=== PATIENT | female | born 1975 | race Caucasian/White ===

== ENCOUNTER 2019-12-30 07:00 | Day surgery (SDC) | payer OTHER ==
[~2019-12-30] VITALS: Ht 160 cm; Wt 95.3 kg
[~2019-12-30 07:00] MED LIST: ARMOUR THYROID60 MG PO; LEVOTHYROXINE112 MCG PO; MOBIC15 MG PO; TENORMIN50 MG PO; WELLBUTRIN SR150 MG PO
[2019-12-30] MEDS ORDERED: CELECOXIB200 MG PO (08:29)
[2019-12-30] MEDS ORDERED: HYDROCODON-ACE1 EA11 PO (08:29)
--- NOTE | 2019-12-30 08:38 | NUR ---
12/30/19 0838 Bri Kowalski 0828-PT ARRIVES TO PACU ON 6 L VIA MASK WITH OPA IN PLACE. PT UNRESPONSIVE TO VERBAL STIMULUS. VSS. SATS >90%. FOGGING IN MASK PRESENT.
--- NOTE | 2019-12-30 11:07 | NUR ---
PT AMBULATES TO BR WITH ONE PERSON STAND BY ASSIST. STEADY ON FEET. DENIES NAUSEA. REPORTS CONTINUED 3-4/10 SURGICAL SITE PAIN. VOIDS UNMEASURED URINE. REVIEWED DISCHARGE INSTRUCTIONS WITH PATIENT AT BEDSIDE. PT SENT WITH COPY OF INSTRUCTIONS WELL MD OFFICE DISCHARGE INSTRUCTIONS.
--- NOTE | 2020-01-02 09:01 | OR ---
[facility] [address], [place] [address] Signed DATE OF OPERATION: 12/30/2019 SURGEON: Joie Muller MD PREOPERATIVE DIAGNOSIS: Medial meniscus tear, left knee. POSTOPERATIVE DIAGNOSES: 1. Medial meniscus tear, left knee. 2. Significant chondrocalcinosis. PROCEDURE PERFORMED: Left knee arthroscopy with debridement of lateral meniscus. SUPERVISOR WORD PROCESSING: None. ANESTHESIA: General. BLOOD LOSS: Minimal. BRIEF HISTORY: Jair is a 44-year-old female with significant pain in her knee. She had a large meniscus tear on the MRI and mechanical symptoms. We discussed surgery versus nonsurgical approaches and she wished to proceed. DESCRIPTION OF PROCEDURE: Once consent was obtained, she was taken to the operating room. After adequate anesthesia, she was placed on operating room table. The right leg was flexed, abducted, and externally rotated on a well-padded leg esposito. The left was placed in well-padded leg esposito and the portal sites were pre-injected using 0.25% Marcaine with epinephrine under an alcohol prep. The leg was then prepped and draped in standard sterile fashion and a standard inferior lateral and superolateral portals were made and the scope was introduced. ARTHROSCOPIC FINDINGS: Substantial synovitis was noted throughout the knee particularly in the medial half. The patellofemoral joint was intact. Medial and lateral gutter showed mild osteophytes Electronically Signed By: JOIE MULLER MD 01/02/20 0901 PATIENT NAME: JAIR LÓPEZ OPERATIVE REPORT DATE OF : 71 REPORT #: [id number] PHYSICIAN: JOIE MULLER MD PCP: ANA SANTIZO NP REPORT IS CONFIDENTIAL AND NOT TO BE RELEASED WITHOUT AUTHORIZATION [facility] [address] [facility] [place] [place] [address] Signed and extensive synovitis. There was calcific deposits in the synovium, particularly on the medial side. ACL and PCL were intact. Lateral compartment was intact with mild chondrocalcinosis. Medial compartment was intact with significant chondrocalcinosis meniscus and some in the articular side. There was a large complex tear extending from the midbody posteriorly. There were several unstable flaps. DESCRIPTION OF PROCEDURE: Standard inferomedial portal was made after localization using a spinal needle. The straight and curved biters were then used to trim the meniscus tear back to stable rim posteriorly. This was smoothed using shaver and all debris was evacuated. The flaps on the femoral condyle was debrided as well. The scope was then withdrawn. Portals closed with 3-0 nylon and dressed with Adaptic, ABD and German wrap. We injected the knee with 60 mg Toradol at the end of the case. She tolerated the procedure well. All sponge, needle, and instrument counts were correct. Joie Muller MD BA/MODL /[id number] Copies: ~ Electronically Signed By: JOIE MULLER MD 01/02/20 0901 PATIENT NAME: JAIR LÓPEZ OPERATIVE REPORT DATE OF : 71 REPORT #: [id number] PHYSICIAN: JOIE MULLER MD PCP: ANA SANTIZO NP REPORT IS CONFIDENTIAL AND NOT TO BE RELEASED WITHOUT AUTHORIZATION
== END 2019-12-30 12:02 | disposition home or self-care (01) ==
LOC: DS 07:00
PROVIDERS: Specialist
PROC: 0SBD4ZZ Excision of Left Knee Joint, Percutaneous Endoscopic Approach (ICD-10-PCS; principal; 2019-12-30 08:15)
DX: S83.232A Complex tear of medial meniscus, current injury, left knee, initial encounter (principal); M11.262 Other chondrocalcinosis, left knee; M25.762 Osteophyte, left knee; M65.862 Other synovitis and tenosynovitis, left lower leg; E03.9 Hypothyroidism, unspecified; I10 Essential (primary) hypertension; Z79.899 Other long term (current) drug therapy; Z98.890 Other specified postprocedural states
CPT/HCPCS: 01400; A9270; J0690; J1100; J1885; J2001; J2250; J2300; J2405; J2704; J3010; J3475; J7121

== ENCOUNTER 2023-12-22 14:54 | Observation (INO) | payer OTHER ==
[~2023-12-22] VITALS: Ht 160 cm; Wt 82.1 kg
[~2023-12-22 14:54] MED LIST changes: +ACETAMINOPHEN500 MG PO; +CELECOXIB200 MG PO; +COLLAGEN 15001 EACH PO; +FOLINIC-PLUS C1 EACH PO; +GABAPENTIN300 MG PO; +GLUCOSAMINE DA1 EACH PO; +HYDROCODON-ACE1 EA11 PO; +MAGNESIUM COMP300 MG PO; +MELOXICAM15 MG PO; +METHYLPHENIDATE10 M1 PO; +MULTI VITAMIN1 EACH PO; +NEXIUM20 MG PO; +OMEPRAZOLE20 MG PO; +OSTERA TABLET1 EACH PO; +OXYCODONE HCL5 MG PO; +PROBIOTIC250 MG PO; +SENNA LAX8.6 MG PO; +TIZANIDINE HCL4 MG PO; +XARELTO10 MG PO; +ZYLOPRIM100 MG PO; +[UNRECOGNIZED DRUG - OTHER] PO
--- OUTSIDE RECORDS SUMMARY | 2023-12-22 14:57 | XMS ---
PreManage Notification: JAIR LÓPEZ Security [address] Engineer Events No recent Security Events currently on file CRITERIA MET - PDMP CARE PROVIDERS -[facility]- Dentist: Automatic Pattern Edger [facility] PHONE: [phone] Butch has no Care Guidelines for this patient. E.DLiliana VISIT COUNT (12 MO.) 1 AMINATA Olivares TOTAL 1 NOTE: Visits indicate total known visits. ED/UCC VISIT TRACKING (12 MO.) 12/22/2023 14:55 AMINATA Bautista OR TYPE: Emergency COMPLAINT: - FT KNEE PAIN INPATIENT VISIT TRACKING (12 MO.) No inpatient visits to display in this time frame [email or web address]
[2023-12-22] MEDS ORDERED: VALACYCLOVIR1000 MG PO (15:11)
[2023-12-22] MEDS ORDERED: CEPHALEXIN MONOHYDRATE 500 MG CAP PO ONE (16:30)
[2023-12-22 16:50] LABS: BASOPHILS 1.4 % (0-2); EOSINOPHILS 1.7 % (0-6); HEMATOCRIT 39.5 % (35.0-50.0); HEMOGLOBIN 13.1 g/dL (12.0-18.0); LYMPHOCYTES 27.8 % (24-44); MCH 33.3 (27-36); MCHC 33.2 g/dl (30-36); MCV 100.4 fl (81-99); MONOCYTES 11.1 % (0-12); PLATELET COUNT 224 K/uL (140-440); RBC 3.94 M/ul (4.3-5.7); RDW 15.9 (10.5-15.0)
[2023-12-22 17:05] LABS: ALBUMIN 3.9 g/dL (3.4-5.0); ALBUMIN/GLOBULIN RATIO 1.11 (1.1-2.4); ANION GAP 12.8 (7-21); BILIRUBIN, TOTAL 0.6 ng/dL (0.2-1.0); BUN/CREATININE RATIO 20.54 (6.0-28.6); CALCIUM 9.3 mg/dL (8.5-10.1); CREATININE, SERUM 0.73 mg/dL (0.55-1.02); POTASSIUM 3.8 mmol/L (3.5-5.1); PROTEIN, TOTAL 7.4 g/dL (6.4-8.2)
[2023-12-22 17:52] LABS: ERYTHROCYTE SEDIMENTATION RATE 20
[2023-12-22] MEDS ORDERED: CEFEPIME HCL/D5W 2 GM/100 ML PIGGYBACK IV ONE (18:15)
[2023-12-22] MEDS ORDERED: HYDROCODONE/ACETA 7.5/325 TAB PO PRN (18:30)
[2023-12-22] MEDS ORDERED: ondansetron HCL 4 MG/2 ML VIAL IV PRN (18:30)
[2023-12-22] MEDS ORDERED: HYDROCODONE/ACETA 7.5/325 TAB PO ONE (18:45)
[2023-12-22 19:37] VITALS: BP 156/91
--- NOTE | 2023-12-22 19:40 | NUR ---
PATIENT TO THE FLOOR AND RESTING IN HOSPITAL BED. VS AND I&Os OBTAINED AND RECORDED. IV FLUSHED AND WNL. PATIENT AT HOME MEDS DISCUSSED. PATIENT EDUCATED TO CALL LIGHT AND ROOM. PATIENT DENIES NEEDS AT THIS TIME. CALL LIGHT IN REACH. ASSESSMENT COMPLETE. REDNESS, PAIN AND HEAT NOTED ON LLE. REDNESS OUTLINED PRIOR TO ARRIVAL.
[2023-12-22] MEDS ORDERED: OXYCODONE HCL 5 MG TAB PO PRN (20:30)
--- NOTE | 2023-12-22 20:44 | NUR ---
PHONE CALL TO MD, UPDATED ON VS. TELEPHONE ORDER FOR MEDICATIONS REPEATED BACK TO VERIFY ALL ORDERS. EMAR UPDATED. TELEPHONE ORDER TO ELEVATE LLE ON TWO PILLOWS, PRIMARY RN NOTIFIED.
[2023-12-22] MEDS ORDERED: ACETAMINOPHEN 500 MG TAB PO PRN (20:45)
[2023-12-22] MEDS ORDERED: MELOXICAM 15 MG TAB PO SCH (21:00)
[2023-12-22] MEDS ORDERED: TRAZODONE HCL 50 MG TAB PO SCH (21:00)
[2023-12-22] MEDS ORDERED: diphenhydrAMINE HCL 25 MG CAP PO SCH (21:00)
[2023-12-22] MEDS ORDERED: allopurinoL 100 MG TAB PO SCH (21:00)
[2023-12-22] MEDS ORDERED: PANTOPRAZOLE SODIUM 40 MG TABEC PO SCH (21:00)
[2023-12-22] MEDS ORDERED: atenoloL 50 MG TAB PO SCH (21:00)
[2023-12-22] MEDS ORDERED: GABAPENTIN 300 MG CAP PO SCH (21:00)
[2023-12-22] MEDS ORDERED: TIZANIDINE HCL 4 MG TABLET PO SCH (21:00)
--- NOTE | 2023-12-22 21:00 | NUR ---
IN ROOM FOR MEDICATION ADMINISTRATION. PRN MEDICATION ADMINISTERED FOR 5/10 PAIN IN LLE. pt DRINKING WATER. LEG ELEVATED ON TWO PILLOWS AT THIS TIME. EDUCATION PROVIDED. CALL LIGHT AND PERSONAL SUPPLIES IN REACH.
--- NOTE | 2023-12-22 21:40 | NUR ---
PATIENT RESTING IN BED. SCHEDULED MEDICATION ADMINISTERED. PATIENT CPAP BROUGHT IN BY SON. PATIENT LLE ELEVATED WITH 2 PILLOWS. PATIENT DENIES NEEDS AT THIS TIME. NO FURTHER NEEDS. CALL LIGHT IN REACH.
[2023-12-22] MEDS ORDERED: CEFEPIME HCL/D5W 1 GM/100 ML PIGGYBACK IV SCH (22:00)
--- NOTE | 2023-12-22 22:50 | NUR ---
PATIENT RESTING IN BED ON BACK WITH EYES CLOSED. RESPIRATIONS EVEN AND UNLABORED. CALL LIGHT IN REACH.
--- NOTE | 2023-12-23 00:35 | NUR ---
PATIENT RESTING IN BED ON BACK WITH EYES CLOSED. RESPIRATIONS EVEN AND UNLABORED. CALL LIGHT IN REACH.
[2023-12-23] MEDS ORDERED: CEFEPIME HCL/D5W 1 GM/100 ML PIGGYBACK IV SCH (02:00)
[2023-12-23 02:31] VITALS: BP 94/59
--- NOTE | 2023-12-23 02:45 | NUR ---
PATIENT RESTING IN BED ON BACK WITH EYES CLOSED. AWAKENS EASILY. SCHEDULED ABX INFUSING PER ORDER. PATIENT REPORTS PAIN IN LLE. PRN PAIN MEDICATION ADMINSTERED. VS AND I&Os OBTAINED AND RECORDED. FRESH WATER PROVIDED. PATIENT HAS NO FURTHER NEEDS. CALL LIGHT IN REACH.
--- NOTE | 2023-12-23 04:37 | NUR ---
PATIENT RESTING IN BED WITH EYES CLOSED. RESPIRATIONS EVEN AND UNLABORED. CALL LIGHT IN REACH.
[2023-12-23 05:23] LABS: BASOPHILS 0.8 % (0-2); EOSINOPHILS 3.9 % (0-6); HEMATOCRIT 34.5 % (35.0-50.0); HEMOGLOBIN 11.8 g/dL (12.0-18.0); LYMPHOCYTES 28.9 % (24-44); MCH 33.9 (27-36); MCHC 34.1 g/dl (30-36); MCV 99.6 fl (81-99); MONOCYTES 13.1 % (0-12); NEUTROPHILS 53.3 % (39-80); PLATELET COUNT 197 K/uL (140-440); RBC 3.47 M/ul (4.3-5.7); RDW 15.6 (10.5-15.0)
[2023-12-23 05:46] LABS: ALBUMIN 3.3 g/dL (3.4-5.0); ALBUMIN/GLOBULIN RATIO 1.06 (1.1-2.4); ANION GAP 11.9 (7-21); BILIRUBIN, TOTAL 0.4 ng/dL (0.2-1.0); BUN/CREATININE RATIO 22.98 (6.0-28.6); CALCIUM 8.6 mg/dL (8.5-10.1); CREATININE, SERUM 0.87 mg/dL (0.55-1.02); POTASSIUM 3.9 mmol/L (3.5-5.1); PROTEIN, TOTAL 6.4 g/dL (6.4-8.2)
[2023-12-23 06:14] VITALS: BP 110/71
--- NOTE | 2023-12-23 06:25 | NUR ---
PATIENT RESTING IN BED. SCHEDULED MEDICATION ADMINISTERED. PATIENT REPORTS 4/10 LLE PAIN. PRN PAIN MEDICATION ADMINISTERED, SEE MAR. VS AND I&Os OBTAINED AND RECORDED. ASSESSMENT COMPLETE. REDNESS IN LLE IS DECREASED. PATIENT STATES "IT LOOKS LIKE THE RED LIGHT ON MY LEG IS DIMMED. LIKE IT GOT TURNED DOWN" WHEN TALKING ABOUT THE LLE REDNESS. PATIENT ALSO STATES "IT IS FEELING BETTER". FRESH WATER PROVIDED. NO FURTHER NEEDS. CALL LIGHT IN REACH.
[2023-12-23] MEDS ORDERED: LEVOTHYROXINE SODIUM 50 MCG TAB PO SCH (07:00)
[2023-12-23] MEDS ORDERED: THYROID 60 MG TAB PO SCH (07:00)
--- NOTE | 2023-12-23 07:18 | NUR ---
REPORT RECEIVED FROM JAQUAN XIAO, ALL QUESTIONS ANSWERED. PT RESTING IN BED WITH EYES CLOSED, RESPIRATIONS EVEN AND UNLABORED. LLE ELEVATED ON PILLOWS. CALL LIGHT IN REACH.
--- NOTE | 2023-12-23 08:30 | NUR ---
ASSESSMENT COMPLETE. PT WITH LLE ELEVATED ON PILLOWS, STATES PAIN IS TOLERABLE AT THIS TIME. REDNESS WITHIN OUTLINE ON LLE, WARMTH TO TOUCH. PT DENIES FURTHER NEEDS AT THIS TIME. ICE PACK PROVIDED. DR VIDES IN ROOM.
[2023-12-23] MEDS ORDERED: BACTRIM DS TAB1 EACH PO (08:35)
[2023-12-23] MEDS ORDERED: OXYCODONE HCL5 MG PO (08:35)
[2023-12-23] MEDS ORDERED: CEFADROXIL500 MG PO (08:36)
[2023-12-23] MEDS ORDERED: buPROPion HCL 150 MG TABCR PO SCH (09:00)
[2023-12-23 09:31] VITALS: BP 117/77
--- NOTE | 2023-12-23 09:33 | NUR ---
PATIENT IN BED AT THIS TIME. VITALS AND I&O'S CHARTED. CALL LIGHT WITHIN REACH, NO FURTHER NEEDS AT THIS TIME.
--- NOTE | 2023-12-23 09:45 | NUR ---
Spoke with Corrina. She lives in [place] in a [facility]. Has multiple steps to her bedroom. States she is doing fine with stairs since surgery. She has a walker, cane, shower chair. She does her grocery shopping on line and her children pick it up. She is able to do her own cooking and cleaning. Her boys assist her as needed. She states the swelling inher leg is not an infection, but is shingles. H&P documents both cellulitis and shingles. Pt states she has started valcyclovir and is already improving. She denies needs and plans on dc to home today. She denies any financial concerns.
--- NOTE | 2023-12-23 10:36 | NUR ---
VISITED DURING SPIRITUAL CARE ROUNDS. PT IN OVERALL GOOD SPIRITS; EXPRESSED HOPEFUL ANTICIPATION FOR IMMINENT DISCHARGE. I PROVIDED SUPPORTIVE PRESENCE, HOSPITALITY, PRAYER. PT EXPRESSED GRATITUDE, HOPE.
[2023-12-23 12:09] VITALS: BP 128/83
== END 2023-12-23 12:12 | disposition home or self-care (01) ==
LOC: ED 14:54 → MS 14:56
PROVIDERS: Emergency Medicine; ADMIT Specialist; ATTEND Specialist
DX: L03.116 Cellulitis of left lower limb (principal); E03.9 Hypothyroidism, unspecified; G47.30 Sleep apnea, unspecified; I10 Essential (primary) hypertension; Z87.891 Personal history of nicotine dependence; Z91.013 Allergy to seafood; Z91.011 Allergy to milk products
CPT/HCPCS: 36415; 80053; 83605; 85025; 85651; 86140; 93971; 96374; 96376; 99284-25; A9270; G0378; J0692